=== PATIENT | male | born 1965 | race Caucasian/White ===

== ENCOUNTER 2017-07-10 19:52 | Emergency (ER) | payer BC, OTHER ==
[2017-07-10] MEDS ORDERED: Sodium Chloride 0.9% 1,000 ML IV ONE ×2 (20:21→21:38)
--- NOTE | 2017-07-10 20:30 | EDM.PDOC ---
ED HPI GENERAL MEDICAL PROBLEM - General Chief Complaint: Cardiovascular Problem Stated Complaint: DIZZINESS Time Seen by Provider: 07/10/17 20:10 Source of Information: Reports: Patient History Limitations: Reports: No Limitations - History of Present Illness INITIAL COMMENTS - FREE TEXT/NARRATIVE: HISTORY AND PHYSICAL: History of present illness: [52-year-old male with a history of anxiety and depression as well as previous GI bleed which caused anemia and syncope, now presents emergency department complaining of feeling lightheaded. Patient states he had an episode of lightheadedness yesterday after standing up. That episode resolved spontaneously after a brief period. 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 Patient denies room spinning type of dizziness and had no nausea or vomiting. He has no previous history of vertigo. Patient is not sure if he drank enough fluids today but he has not been in any excessively hot environments and does not feel there is an obvious reason for him to be dehydrated. No history of thyroid problems and patient is not diabetic. He has had no chest pain or shortness of breath at any time. No pleuritic pain, leg pain or leg swelling. Review of systems: As per history of present illness and below otherwise all systems reviewed and negative. Past medical history: As per history of present illness and as reviewed below otherwise noncontributory. Surgical history: As per history of present illness and as reviewed below otherwise noncontributory. Social history: No reported history of drug or alcohol abuse. Family history: As per history of present illness and as reviewed below otherwise noncontributory. Physical exam: HEENT: Atraumatic, normocephalic, pupils reactive, negative for conjunctival pallor or scleral icterus, mucous membranes moist, throat clear, neck supple, nontender, trachea midline. Lungs: Clear to auscultation, breath sounds equal bilaterally, chest nontender. Heart: S1S2, regular, negative for clicks, rubs, or JVD. Abdomen: Soft, nondistended, nontender. Negative for masses or hepatosplenomegaly. Negative for costovertebral tenderness. Pelvis: Stable nontender. Genitourinary: Deferred. Rectal: Deferred. Extremities: Atraumatic, negative for cords or calf pain. Neurovascular unremarkable. Neuro: Awake, alert, oriented. Cranial nerves II through XII unremarkable. Cerebellum unremarkable. Motor and sensory unremarkable throughout. Exam nonfocal. Diagnostics: [EKG with normal sinus rhythm at 71 normal axis no STEMI Chest x-ray no acute disease interpreted by me] Therapeutics: [IV fluids administered] Impression: [] Plan: [Patient feeling lightheaded prehospital. Prior distant history of GI bleed. Positive orthostatics at the bedside observed by me. IV fluids administered full workup pending. orkup unremarkable. Patient asymptomatic after IV fluids able to stand and ambulate without difficulty.follow-up PCP no further workup or treatment indicated at this time patient agrees with outpatient follow-up and strict return precautions given Definitive disposition and diagnosis as appropriate pending reevaluation and review of above. - Related Data Allergies Allergy/AdvReac Type Severity Reaction Status Date / Time acetaminophen [From Roxicet] Allergy Hallucinati Verified 07/10/17 20:13 ons eszopiclone [From Lunesta] Allergy Hallucinati Verified 07/10/17 20:13 ons oxycodone [From Roxicet] Allergy Hallucinati Verified 07/10/17 20:13 ons Home Meds: Home Meds Citalopram [Celexa] 20 mg PO DAILY 07/10/17 [History] Doxycycline [Vibramycin] 100 mg PO Q12HR #20 cap 07/10/17 [Rx] LORazepam [Ativan] 1 mg PO ASDIRECTED PRN 07/10/17 [History] Past Medical History Cardiovascular History: Reports: Other (See Below) Other Cardiovascular History: 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 Psychiatric History: Reports: Anxiety - Infectious Disease History Infectious Disease History: Reports: Chicken Pox - Past Surgical History GI Surgical History: Reports: Bariatric Procedure, Cholecystectomy Social & Family History - Family History Family Medical History: Noncontributory - Tobacco Use Smoking Status *Q: Never Smoker - Caffeine Use Caffeine Use: Reports: None - Recreational Drug Use Recreational Drug Use: No ED ROS GENERAL - Review of Systems Review Of Systems: See Below (History of present illness) ED EXAM, GENERAL - Physical Exam Exam: See Below (History of present illness) Course - Vital Signs Last Recorded V/S: Last Vital Signs Temp 36.4 C 07/10/17 22:59 Pulse 68 07/10/17 22:59 Resp 16 07/10/17 22:59 BP 107/74 07/10/17 22:59 Pulse Ox 95 07/10/17 22:59 - Orders/Labs/Meds Orders: Active Orders 24 hr Category Date Time Status EKG Documentation Completion [RC] STAT Care 07/10/17 20:22 Active Chest 1V Frontal [CR] Stat Exams 07/10/17 20:22 Taken Peripheral IV Insertion Adult [OM.PC] Stat Oth 07/10/17 20:22 Ordered Labs: Laboratory Tests 07/10/17 07/10/17 07/10/17 Range/Units 20:35 20:35 20:35 WBC 6.56 (4.0-11.0) K/uL RBC 5.18 (4.50-5.90) M/uL Hgb 15.3 (13.0-17.0) g/dL Hct 45.9 (38.0-50.0) % MCV 88.6 (80.0-98.0) fL MCH 29.5 (27.0-32.0) pg MCHC 33.3 (31.0-37.0) g/dL RDW Std Deviation 42.1 (28.0-62.0) fl RDW Coeff of Jud 13 (11.0-15.0) % Plt Count 193 (150-400) K/uL MPV 10.50 (7.40-12.00) fL Neut % (Auto) 67.7 (48.0-80.0) % Lymph % (Auto) 23.6 (16.0-40.0) % Fergus % (Auto) 7.0 (0.0-15.0) % Eos % (Auto) 1.2 (0.0-7.0) % Baso % (Auto) 0.5 (0.0-1.5) % Neut # (Auto) 4.4 (1.4-5.7) K/uL Lymph # (Auto) 1.6 (0.6-2.4) K/uL Fergus # (Auto) 0.5 (0.0-0.8) K/uL Eos # (Auto) 0.1 (0.0-0.7) K/uL Baso # (Auto) 0.0 (0.0-0.1) K/uL Nucleated RBC % 0.0 /100WBC Nucleated RBCs # 0 K/uL Sodium 137 (136-146) mmol/L Potassium 4.3 (3.5-5.1) mmol/L Chloride 106 (98-110) mmol/L Carbon Dioxide 23 (21-31) mmol/L BUN 16 (6.0-23.0) mg/dL Creatinine 1.0 (0.6-1.5) mg/dL Est Cr Clr Drug Dosing 94.13 mL/min Estimated GFR (MDRD) > 60.0 ml/min Glucose 114 H (60-110) mg/dL Calcium 8.8 (8.8-10.8) mg/dL Troponin I < 0.10 (0.0-0.29) NG/ML TSH 3rd Generation 1.77 (0.47-5.0) uIU/mL Urine Color Urine Appearance Urine pH (5.0-8.0) Ur Specific Monroe (1.001-1.035) Urine Protein (NEGATIVE) mg/dL Urine Glucose (UA) (NEGATIVE) mg/dL Urine Ketones (NEGATIVE) mg/dL Urine Occult Blood (NEGATIVE) Urine Nitrite (NEGATIVE) Urine Bilirubin (NEGATIVE) Urine Urobilinogen (<2.0) EU/dL Ur Leukocyte Esterase (NEGATIVE) Urine RBC (0-2/HPF) Urine WBC (0-5/HPF) Ur Epithelial Cells (NONE-FEW) Urine Bacteria (NEGATIVE) 07/10/17 Range/Units 21:40 WBC (4.0-11.0) K/uL RBC (4.50-5.90) M/uL Hgb (13.0-17.0) g/dL Hct (38.0-50.0) % MCV (80.0-98.0) fL MCH (27.0-32.0) pg MCHC (31.0-37.0) g/dL RDW Std Deviation (28.0-62.0) fl RDW Coeff of Jud (11.0-15.0) % Plt Count (150-400) K/uL MPV (7.40-12.00) fL Neut % (Auto) (48.0-80.0) % Lymph % (Auto) (16.0-40.0) % Fergus % (Auto) (0.0-15.0) % Eos % (Auto) (0.0-7.0) % Baso % (Auto) (0.0-1.5) % Neut # (Auto) (1.4-5.7) K/uL Lymph # (Auto) (0.6-2.4) K/uL Fergus # (Auto) (0.0-0.8) K/uL Eos # (Auto) (0.0-0.7) K/uL Baso # (Auto) (0.0-0.1) K/uL Nucleated RBC % /100WBC Nucleated RBCs # K/uL Sodium (136-146) mmol/L Potassium (3.5-5.1) mmol/L Chloride (98-110) mmol/L Carbon Dioxide (21-31) mmol/L BUN (6.0-23.0) mg/dL Creatinine (0.6-1.5) mg/dL Est Cr Clr Drug Dosing mL/min Estimated GFR (MDRD) ml/min Glucose (60-110) mg/dL Calcium (8.8-10.8) mg/dL Troponin I (0.0-0.29) NG/ML TSH 3rd Generation (0.47-5.0) uIU/mL Urine Color YELLOW Urine Appearance CLEAR Urine pH 5.5 (5.0-8.0) Ur Specific Monroe 1.020 (1.001-1.035) Urine Protein NEGATIVE (NEGATIVE) mg/dL Urine Glucose (UA) 100 H (NEGATIVE) mg/dL Urine Ketones NEGATIVE (NEGATIVE) mg/dL Urine Occult Blood NEGATIVE (NEGATIVE) Urine Nitrite NEGATIVE (NEGATIVE) Urine Bilirubin NEGATIVE (NEGATIVE) Urine Urobilinogen 0.2 (<2.0) EU/dL Ur Leukocyte Esterase NEGATIVE (NEGATIVE) Urine RBC NONE SEEN (0-2/HPF) Urine WBC 0-1 (0-5/HPF) Ur Epithelial Cells RARE (NONE-FEW) Urine Bacteria RARE (NEGATIVE) Meds: Medications Discontinued Medications Generic Name Dose Route Start Last Admin Trade Name Freq PRN Reason Stop Dose Admin Sodium Chloride 1,000 mls @ 999 mls/hr 07/10/17 20:21 07/10/17 20:38 Normal Saline IV 07/10/17 21:21 999 mls/hr .Bolus ONE Administration Sodium Chloride 1,000 mls @ 999 mls/hr 07/10/17 21:38 07/10/17 21:43 Normal Saline IV 07/10/17 22:38 999 mls/hr STAT ONE Administration Departure - Departure Time of Disposition: 23:07 Disposition: Home, Self-Care 01 Condition: Good Clinical Impression: Dehydration, Orthostasis, Anxiety Referrals: Ivette Ross DO [Primary Care Provider] - Forms: ED Department Discharge Additional Instructions: It appears that you have evolved some mild dehydration which we addressed today with IV fluids. Your lightheadedness with standing has resolved after IV fluids were administered. Your labs are unremarkable including a normal hemoglobin, which is your blood level. Rest and drink plenty of fluids and follow-up with your Dr. tomorrow. Return immediately for new severe or worsening symptoms - My Orders Last 24 Hours: My Active Orders 07/10/17 20:22 EKG Documentation Completion [RC] STAT Chest 1V Frontal [CR] Stat Peripheral IV Insertion Adult [OM.PC] Stat - Assessment/Plan Last 24 Hours: My Active Orders 07/10/17 20:22 EKG Documentation Completion [RC] STAT Chest 1V Frontal [CR] Stat Peripheral IV Insertion Adult [OM.PC] Stat
[2017-07-10 21:07] LABS: CHLORIDE,CL 106 mmol/L (98-110); SODIUM,NA 137 mmol/L (136-146)
[2017-07-10 23:00] VITALS: BP 107/74
[2017-07-10] MEDS ORDERED: cefTRIAXone 250 MG Vial IM ONE (23:03)
[2017-07-10] MEDS ORDERED: Doxycycline 100 MG Cap PO ONE (23:03)
--- NOTE | 2017-07-11 11:53 | CR ---
EXAM DATE: 07/10/17 PATIENT'S AGE: 52 Patient: MIGEL GUEVARA Facility: [place], [place] Site . Site : [id number] Study: XRay Chest [id number]/8/2017 9:00:50 PM Ordering Physician: Kal Camacho Final Report: INDICATION: chest eval INDICATION: Chest pain. TECHNIQUE: Chest 1 view. COMPARISON: None FINDINGS: Cardiovascular and mediastinum: Heart size and vasculature are normal in caliber and appearance. Mediastinum is within normal limits. Lungs and pleural space: Lungs are clear. No sign of infiltrate or mass. No sign of pleural effusion. No pneumothorax. Bones and soft tissues: No significant findings. IMPRESSION: Lungs are clear. Dictated by Justice Cain MD @ 07/10/2017 9:26:32 PM Dictated by: Justice Cain MD @ 07/10/2017 21:26:41 (Electronic Signature) Report Signed by Proxy. [email or web address]
== END 2017-07-10 23:21 | disposition home or self-care (01) ==
LOC: MW.ED 19:52
DX: E86.0 Dehydration (principal); F41.9 Anxiety disorder, unspecified; Z88.6 Allergy status to analgesic agent; Z88.5 Allergy status to narcotic agent; Z79.899 Other long term (current) drug therapy
CPT/HCPCS: 36415; 71010; 80048; 81001; 84443; 84484; 85025; 93005; 96360; 96361; 99284; J7040